=== PATIENT | female | born 1945 | race Caucasian/White ===

== ENCOUNTER → 2018-05-24 | Outpatient (CLI) | payer MEDICARE, OTHER ==
[~2018-05-24] MED LIST: ALLER-TEC D 5-1 EACH; ASPI81CH; ATOR10; ERGO50000; Fiorinal1 EA; GABA100; Imitrex100 MG; MONT10T; NAPR500; NASACORT10.8 ML; Omeprazole20 M1
== END | disposition home or self-care (01) ==
LOC: LAB 07:33 → LAB SHORT 07:33
DX: L29.0 Pruritus ani (principal)
CPT/HCPCS: 87172

== ENCOUNTER 2021-03-26 09:31 | Day surgery (SDC) | payer MEDICARE, BC ==
[~2021-03-26] VITALS: Ht 157.5 cm; Wt 52.1 kg
== END 2021-03-26 11:11 | disposition home or self-care (01) ==
LOC: ORSCSDS 09:31
PROVIDERS: Internal Medicine Gastroenterology
PROC: 0DBH8ZX Excision of Cecum, Via Natural or Artificial Opening Endoscopic, Diagnostic (ICD-10-PCS; principal; 2021-03-26 10:45)
DX: Z12.11 Encounter for screening for malignant neoplasm of colon (principal); Z86.010 Personal history of colon polyps; D12.0 Benign neoplasm of cecum; K57.30 Diverticulosis of large intestine without perforation or abscess without bleeding; J45.909 Unspecified asthma, uncomplicated; Z79.899 Other long term (current) drug therapy; Z79.82 Long term (current) use of aspirin
CPT/HCPCS: 88305; J2250; J2704; J7120